=== PATIENT | male | born 1940 | race Caucasian/White ===

== ENCOUNTER 2023-06-10 03:55 | Emergency (ER) | payer OTHER, SELFPAY ==
[2023-06-10 04:02] VITALS: BP 165/101
[2023-06-10 04:10] VITALS: BMI 29.4
[2023-06-10 04:26] LABS: % Basophils 0.6 % (0-2); % Eosinophils 2.3 % (0-6); % Immature Granulocytes 0.3 % (0-0.5); % Lymphocytes 24.2 % (20.5-51.1); % Neutrophils 63.6 % (42.2-75.2); Absolute Eosinophils 0.2 10^3/uL (0-0.7); Absolute Lymphocytes 1.6 10^3/uL (1.2-3.4); Absolute Monocytes 0.6 10^3/uL (0.1-0.6); Absolute Neutrophils 4.1 10^3/uL (1.4-6.5); Hematocrit 42.9 % (39.0-52.0); Hemoglobin 15.3 g/dL (13.0-18.0); Mean Corp Hgb Conc. 35.7 g/dL (33.0-37.0); Mean Corpuscular Hgb 35.1 pg (27.0-31.0); Mean Corpuscular Volume 98.4 fL (80.0-94.0); Mean Platelet Volume 9.6 fL (7.4-10.4); Nucleated Red Blood Cells % 0 % (-); Platelet Count 184 10^3/uL (130-400); Red Blood Cell Count 4.36 10^6/uL (4.70-6.10); Red Cell Dist. Width 11.9 % (11.5-14.5); White Blood Cell Count 6.5 10^3/uL (4.8-10.8)
[2023-06-10 04:49] LABS: ALT (SGPT) 23 U/L (0-50); AST (SGOT) 24 U/L (17-59); Alkaline Phosphatase 90 U/L (38-126); Blood Urea Nitrogen 16 mg/dl (9-20); Calcium 8.9 mg/dl (8.4-10.2); Carbon Dioxide 29 mmol/L (22-30); Chloride 102 mmol/L (98-107); Estimated Creatinine Clearance 57 ml/min; Glucose 104 mg/dl (70-99); Sodium 140 mmol/L (135-145); Total Protein 6.7 g/dl (6.3-8.2); eGFR > 60.00
[2023-06-10 04:51] LABS: Troponin I < 0.012 ng/ml
--- NOTE | 2023-06-10 05:01 | ED.GENMED ---
History of Present Illness
General
Chief Complaint: Chest Pain
Source: patient
Exam Limitations: none
Time Seen by Provider: 06/10/23 04:24
Nursing documentation reviewed up to this point in time: agreed with
Travel History
Have you had any contact with someone who has COVID-19?: No
Do you have any symptoms of coronavirus? Fever > 100 degrees, chills, cough, shortness of breath, sore throat, loss of taste or smell, muscle aches, or headache?: No
History of Present Illness
History of Present Illness:
This is a pleasant 82-year-old male who presents with left sided upper chest pain that is reproducible to touch. He states that he does have some nausea with some dyspnea. Denies fever or chills. Denies any vomiting. Patient denies any previous
cardiac history. He states that aside from palpation, there is no other alleviating or exacerbating factors.
Vital signs are stable. Patient not hypoxic
Nursing note reviewed. I agree with nursing documentation up to this point in time.
Home Meds and allergies reviewed.
NUMBER AND COMPLEXITY OF PROBLEMS ADDRESSED AT THE ENCOUNTER
� Chronic conditions affecting care: High blood pressure, hyperlipidemia, GERD
� Acute Exacerbation and/or Progression of Chronic Illness:
� Differential Diagnosis includes: ACS, pulmonary embolus, musculoskeletal chest pain
AMOUNT AND/OR COMPLEXITY OF DATA TO BE REVIEWED AND ANALYZED
I performed an independent evaluation of the following and my interpretation is:
EKG: EKG shows normal sinus rhythm rate of 65 with normal intervals, left axis deviation, no evidence of acute ischemia present. When compared with previous EKG earlier in the evening no significant change was found. Initial
EKG showed normal sinus rhythm rate of 74, normal intervals, left axis deviation. No evidence of acute ischemia present.
CT:
X-rays: Chest x-ray is negative
Ultrasound:
Laboratory Studies: Troponin is negative
Other:
Review of other/old records:
Clinical information was obtained by an independent historian:
Prescriptions/Medications Considered but not given:
Further testing considered but not performed:
RISK OF COMPLICATIONS AND/OR MORBIDITY OR MORTALITY OF PATIENT MANAGEMENT
Social determinants of health affecting care: Good Social Support
Discussion with other providers:
Escalation of care including admission/observation vs risk of discharge considered: Admission not indicated at this time.
CRITICAL CARE NOTE:
Total Time (exclusive of procedures):
Update: Patient still has reproducible chest pain. He has no chest pain while at rest. He does not have chest pain while taking deep breaths. This appears to be musculoskeletal in nature as I can palpate along his T4 dermatome and reproduce the
exact pain. There is no sign of rash on the skin. His pain does not cross the midline. There is some concern for very early shingles. Discussed with patient and who will keep an eye out for interruption. Patient will return to the ER with
any changing or worsening of symptoms.
Past History
Past History
ED Past Medical History: HTN and Hypercholesterolemia
ED Past Surgical History: Orthopedic (right hip pain)
Social History
Tobacco: Former smoker
Alcohol: Occasional
Drug: None
Personal:
Living: with family
Employment: Employed
Family History
Family History: Negative Early CAD
Phy Exam
General Physical Exam
General Presentation: well appearing and no apparent distress
General Skin: warm and dry
General Habitus: normal
General Mental: alert
General Hydration: appears well hydrated
ENT Exam
ENT Exam: EOMI, pharynx normal, neck supple and normocephalic
Eye Exam
Eye Exam: PERRL, cornea clear and conjunctiva normal
Cardiovascular Exam
Cardiovascular Exam: regular rate/rhythm, no edema, no murmur and normal peripheral pulses
Pulmonary Exam
Pulmonary Exam: lungs clear, no respiratory distress, no rales, no crackles, no rhonchi, no stridor, no wheezing and no cough
Gastrointestinal Exam
Gastrointestinal Exam: normal bowel sounds, non tender, soft, no organomegaly, no pulsatile mass and non distended
Neurological Exam
Neurological Exam: alert, oriented x3, no motor deficits and speech normal
Musculoskeletal Exam
Musculoskeletal Exam: full ROM and no edema
Skin Exam
Skin Exam: normal color, warm/dry, no rash and no petechia
Psychiatric Exam
Psychiatric Exam: normal mood/affect
Scores
Heart Score for Chest Pain Patients
STEMI patient?: Not applicable
Course
Orders/Labs/Results
Orders:
Orders
06/10/23 04:00
Electrocardiogram (*1) Urgent
Reason for Study: Chest Pain
Cardiac Monitoring- Treatment ONCE
EKG- Treatment ONCE
IV Insert/Care/Rem.- Treatment PRN
06/10/23 04:13
Complete Blood Count/With Diff Urgent
Comprehensive Metabolic Panel Urgent
Troponin I Urgent
06/10/23 04:21
Portable Chest Xray [CR Chest Portable - 1 View] Urgent
Comment:
Reason For Exam: chest pain
Reason Study Needs to be Portable: Other
06/10/23 04:25
EKG [Electrocardiogram (*1)] Urgent
Reason for Study: Chest Pain
06/10/23 04:26
EKG- Treatment ONCE
06/10/23 04:58
CT Chest Pe Study Urgent
Comment:
Reason For Exam: cp, dyspnea
06/10/23 08:00
Lidocaine [Lidocaine 4% Patch] 1 patch TOPICAL DAILY
Abnormal Lab Results
06/10/23
04:13
RBC 4.36 L 10^6/uL
(4.70-6.10)
MCV 98.4 H fL
(80.0-94.0)
MCH 35.1 H pg
(27.0-31.0)
Glucose 104 H mg/dl
(70-99)
06/10/23 04:13
06/10/23 04:13
Vital Signs
Initial and Last Documented VS:
Initial Vital Signs
Temp Pulse Resp BP Pulse Ox
98.1 F 71 20 165/101 99
06/10/23 04:02 06/10/23 04:02 06/10/23 04:02 06/10/23 04:02 06/10/23 04:02
Last Documented Vital Signs
Temp Pulse Resp BP Pulse Ox
98.1 F 71 20 165/101 100
06/10/23 04:02 06/10/23 04:02 06/10/23 04:02 06/10/23 04:02 06/10/23 04:16
*Critical Care Note
Total Time (30-74mins, 75-104mins- exclusive of procedures): Not Applicable
ED Attending Note
-
Portions of this chart may have been created with voice recognition software.� Occasional wrong word or��sound alike� substitutions may have occurred due to the inherent limitations of voice recognition software.
Discharge Plan
Departure
Patient Disposition: Home (Routine Discharge)
Date of Disposition: 06/10/23
Time of Disposition: 06:42
Patient with high blood pressure during this ER visit?: Yes
Discharge Problem:
Chest pain
Instructions: Chest Pain PCP Follow Up, BLOOD PRESSURE
Prescriptions:
New
lidocaine 4 % adhesive patch,medicated
1 patch topical BID PRN (Reason: Pain) Qty: 10 0RF
No Action
losartan 50 MG tablet
100 mg PO DAILY
simvastatin 20 MG tablet
20 mg PO QPM
tamsulosin 0.4 MG capsule
0.4 mg PO BID
omeprazole 40 MG capsule,delayed release(DR/EC)
40 mg PO QPM
aspirin 81 MG tablet,delayed release (DR/EC)
81 mg PO DAILY
finasteride 5 MG tablet
5 mg PO DAILY
cholecalciferol (vitamin D3) [Vitamin D3] 25 MCG tablet,chewable
1,000 unit PO DAILY
multivitamin with folic acid [Tab-A-Rick] 1 TABLET tablet
1 tab PO DAILY
Magnesium
2 tab PO DAILY
ibuprofen 600 MG tablet
600 mg PO Q6HPRN PRN (Reason: pain) Qty: 20 0RF
valacyclovir [Valtrex] 1 gram tablet
1,000 mg PO TID Qty: 21 0RF
Referrals:
Richmond Contreras DO [Family Provider] -
Activity Restrictions/Additional Instructions:
It was a pleasure meeting you and taking part in your care. We hope for your continued healing and wellness.
Please read discharge instructions in their entirety. However, they are for general education and may not describe your exact diagnosis at discharge. Information on your ER visit and medical conditions were discussed with you along with appropriate
follow up information...
If indicated, please take your medications as instructed and indicated on discharge paperwork.
Please schedule a follow up appointment as directed. Call to schedule an appointment
Please return to the emergency department with ANY change in, persisting, or worsening of symptoms. If any of your symptoms do not improve, or persist, or become more severe within 6-12 hours, please return to the emergency department for further
care.
Please return to the emergency department if you develop a headache, neck pain/stiffness, fever greater than 100.4F, chest pain, shortness of breath, persistent nausea, vomiting, slurred speech, difficulty walking, numbness/tingling, weakness, signs
of infection or any other symptoms that are worrisome to you.
If you have any questions or concerns please do not hesitate to call the Hospital at or E-mail me directly at [email or web address]
Interventions
Interventions:
*Risk Screen - Suicide Last Done: 06/10/23 04:02
*General Assessment Last Done: 06/10/23 04:02
*Neglect/Abuse Screening Last Done: 06/10/23 04:02
ED- Fall Risk Assessment Last Done: 06/10/23 04:02
*ED COVID-19 Vaccine History Last Done: 06/10/23 04:02
*Nursing Disposition Last Done: 06/10/23 07:20
ED- Cardiac Assessment Last Done: 06/10/23 04:16
Discharge Date and Time
Discharge Date/Time: 06/10/23 07:21
[2023-06-10] MEDS: LIDOCAINE 4% PATCH 1 PATCH TOPICAL (06:50)
== END 2023-06-10 07:21 | disposition home or self-care (01) ==
LOC: EMR 03:55
PROVIDERS: EMERGENCY PHYSICIAN Student in an Organized Health Care Education/Training Program; FAMILY PHYSICIAN Internal Medicine
DX: R07.89 Other chest pain (principal); E78.00 Pure hypercholesterolemia, unspecified; I10 Essential (primary) hypertension; K21.9 Gastro-esophageal reflux disease without esophagitis; Z87.891 Personal history of nicotine dependence
CPT/HCPCS: 99284; 71045; 71275; 80053; 84484; 85025; 93005; Q9967

== ENCOUNTER → 2023-12-22 11:39 | Outpatient (REF) | payer OTHER, SELFPAY | LOC: RAD 11:39 | PROVIDERS: ATTENDING PHYSICIAN Internal Medicine | DX: R31.1 Benign essential microscopic hematuria (principal) | CPT/HCPCS: 74178; Q9967 ==